=== PATIENT | female | born 1985 | race Caucasian/White ===

== ENCOUNTER 2020-07-17 12:31 | Emergency (ER) | payer SELFPAY ==
[2020-07-17 12:37] VITALS: BP 133/89; PULSE 101; TEMP 98.4; BMI 29.0
== END 2020-07-17 14:30 | disposition home or self-care (01) ==
LOC: JER 12:31
DX: Z11.59 Encounter for screening for other viral diseases (principal)
CPT/HCPCS: 71045-TC-FY; 99284-25